=== PATIENT | male | born 1960 | race Caucasian/White ===

== ENCOUNTER 2017-02-07 17:25 | Emergency (ER) | payer OTHER ==
[~2017-02-07] VITALS: Ht 170.2 cm; Wt 70.3 kg
--- NOTE | 2017-02-07 17:55 | NUR ---
Pt report received from LOYDA Meyer. Pt c/o distended bladder and pain s/p prostate bx 1.5 weeks ago. Pt arrives with catheter and leg bag in place, states no urine has been draining since last night.
--- NOTE | 2017-02-07 17:55 | NUR ---
Patient to ER bed 4 to gown for evaluation. Side rails up. Report given to Rob SCALES.
[2017-02-07 17:56] VITALS: BP 151/102; PULSE 97; RESP 16; TEMP 98.5; O2SAT 96
--- NOTE | 2017-02-07 18:00 | NUR ---
# 16 FR Sigala catheter with use of sterile technique. Immediate return of 500 cc Tea color urine noted. Bedside drainage bag placed below level of bladder. Urine sample collected and sent to lab. Pt tolerated procedure well. Patient arrived with sigala and leg bag in place.
--- NOTE | 2017-02-07 18:10 | NUR ---
MYEK Landers at bedside to assess pt.
--- NOTE | 2017-02-07 18:19 | NUR ---
Patient refused urine collection, states he has follow up with urologist who will take care of any urine testing.
--- NOTE | 2017-02-07 18:23 | NUR ---
After speaking with Leesa VELAZQUEZ, pt agrees to have urine taken.
--- NOTE | 2017-02-07 18:30 | NUR ---
F/C left in place with new leg bag applied.
[2017-02-07 18:45] VITALS: BP 146/88; PULSE 77; RESP 18; TEMP 98.2; O2SAT 98
--- NOTE | 2017-02-07 18:45 | NUR ---
Patient given written and verbal discharge instructions and verbalizes understanding. ER MD discussed with patient the results and treatment provided. Patient in stable condition. ID arm band removed. Patient educated on pain management and to follow up with PMD. Pain Scale 0/10. Opportunity for questions provided and answered.
== END 2017-02-07 18:45 | disposition home or self-care (01) ==
LOC: SED 17:25
DX: T83.091A Other mechanical complication of indwelling urethral catheter, initial encounter (principal); I10 Essential (primary) hypertension
CPT/HCPCS: 99284